=== PATIENT | male | born 1995 | race Caucasian/White ===

== ENCOUNTER 2018-04-24 14:44 | Emergency (ER) | payer BC ==
[~2018-04-24] VITALS: Ht 170.2 cm; Wt 68.0 kg
[~2018-04-24 14:44] MED LIST: ALBU8.5H2; MNTL10T PO
--- NOTE | 2018-04-24 15:36 | ED General ---
General Chief Complaint: General Problems/Pain Stated Complaint: ELEVATED HR,WITHDRAWING FROM XANAX Nursing Triage Note: TO ROOM ACCOMPIED BY DAD FROM [facility] PATIENT HAS HX OF ANXIETY AND HAS BEEN GETTING XANAX OFF THE STREET TO SELF MEDICATE. HAS NOT HAD ANY FOR SEVERAL DAY THINKS HE MAY BE DETOXING SELF OFF. HAS A FUNNY FEELING IN CHEST. Nursing Sepsis Screen: No Definite Risk Source of Information: Patient History of Present Illness Date Seen by Provider: Apr 24, 2018 Time Seen by Provider: 15:19 Initial Comments PT ARRIVES VIA POV FROM [facility] PT STATES HE IS WITHDRAWING FROM XANAX HAS BEEN GETTING XANAX OFF THE STREET, AND TAKING 4-6 MG A DAY FOR THE LAST 8 MONTHS. LAST DOSE WAS SUNDAY AFTER NOON 04/22/18 STATES HE WOKE UP THIS MORNING AND HAD A HEADACHE, BLURRY VISION, NAUSEA, FEELING HOT AND COLD. C/O CHEST PAIN SINCE YESTERDAY AND CONTINUES TODAY PT HAS NOT EATEN TODAY, BUT HAS BEEN DRINKING FLUIDS [facility] [place] AND THOUGHT IT WAS ABNORMAL, SO SENT HERE NO HISTORY OF SIMILAR, PT HAS NEVER STOPPED TAKING IT FOR THIS LONG. PT DOES SMOKE THC DAILY, AND HAS TODAY NO PCP Allergies and Home Medications Allergies Coded Allergies: No Known Drug Allergies (Unverified , 07/13/11) Home Medications Montelukast Sodium 10 Mg Tablet, 1 TAB PO DAILY, (Reported) Patient Home Medication List Home Medication List Reviewed: Yes Review of Systems Constitutional: see HPI EENTM: see HPI Respiratory: no symptoms reported Cardiovascular: see HPI, chest pain Gastrointestinal: see HPI Genitourinary: no symptoms reported Musculoskeletal: no symptoms reported Skin: no symptoms reported Psychiatric/Neurological: See HPI Hematologic/Lymphatic: No Symptoms Reported Immunological/Allergic: no symptoms reported Past Lrsjask-Eksxrv-Vmkszi Hx Patient Social History Alcohol Use: Denies Use Recreational Drug Use: Yes (THC ,AND XANAX OFF STREET, TESTED + FOR COCAINE ) Drug of Choice: THC, XANAX, TESTED + FOR COCAINE 04/24/18 Smoking Status: Never a Smoker Recent Foreign Travel: No Contact w/Someone Who Travel: No Recent Infectious Disease Expo: No Past Medical History Surgeries: Yes (TEETH; BMT'S ) Ear Surgery Respiratory: Yes Asthma Cardiac: No Neurological: No Genitourinary: No Gastrointestinal: No Musculoskeletal: No Endocrine: No HEENT: No Cancer: No Psychosocial: Yes Anxiety (SELF DIAGNOSIS) Physical Exam Vital Signs Vital Signs - First Documented 04/24/18 04/24/18 14:50 17:30 Temp 97.9 Pulse 54 Resp 18 B/P (MAP) 138/89 (105) Pulse Ox 98 O2 Delivery Room Air Capillary Refill : Less Than 3 Seconds General Appearance: No Apparent Distress, WD/WN, Other (FLAT AFFECT) Respiratory: Normal Breath Sounds, No Accessory Muscle Use, No Respiratory Distress Cardiovascular: Regular Rate, Rhythm, No Edema, No JVD, No Murmur, Normal Peripheral Pulses Gastrointestinal: Non Tender, Soft Back: Normal Inspection Extremity: Normal Inspection Neurologic/Psychiatric: Alert, Oriented x3, No Motor/Sensory Deficits, escalator mechanic II- XII Norm as Tested, Other (FLAT AFFECT) Skin: Normal Color, Warm/Dry Progress/Results/Core Measures Suspected Sepsis Recent Fever Within 48 Hours: No Infection Criteria Present: None New/Unexplained Altered Menta: No Sepsis Screen: No Definite Risk SIRS Temperature:97.9 Pulse: 54 Respiratory Rate: 18 Laboratory Tests 04/24/18 15:44: White Blood Count 9.2 Blood Pressure 138 /89 Mean: 105 Laboratory Tests 04/24/18 15:44: Creatinine 1.08, Platelet Count 230, Total Bilirubin 1.3H Results/Orders Lab Results Laboratory Tests Test 04/24/18 15:44 04/24/18 16:20 Range/Units White Blood Count 9.2 4.3-11.0 10^3/uL Red Blood Count 5.05 4.35-5.85 10^6/uL Hemoglobin 16.2 13.3-17.7 G/DL Hematocrit 46 40-54 % Mean Corpuscular Volume 91 80-99 FL Mean Corpuscular Hemoglobin 32 25-34 PG Mean Corpuscular Hemoglobin Concent 35 32-36 G/DL Red Cell Distribution Width 14.0 10.0-14.5 % Platelet Count 230 130-400 10^3/uL Mean Platelet Volume 10.6 H 7.4-10.4 FL Neutrophils (%) (Auto) 77 H 42-75 % Lymphocytes (%) (Auto) 14 12-44 % Monocytes (%) (Auto) 7 0-12 % Eosinophils (%) (Auto) 1 0-10 % Basophils (%) (Auto) 1 0-10 % Neutrophils # (Auto) 7.1 1.8-7.8 X 10^3 Lymphocytes # (Auto) 1.3 1.0-4.0 X 10^3 Monocytes # (Auto) 0.6 0.0-1.0 X 10^3 Eosinophils # (Auto) 0.1 0.0-0.3 10^3/uL Basophils # (Auto) 0.1 0.0-0.1 10^3/uL Sodium Level 139 135-145 MMOL/L Potassium Level 4.5 3.6-5.0 MMOL/L Chloride Level 104 98-107 MMOL/L Carbon Dioxide Level 25 21-32 MMOL/L Anion Gap 10 5-14 MMOL/L Blood Urea Nitrogen 8 7-18 MG/DL Creatinine 1.08 0.60-1.30 MG/DL Estimat Glomerular Filtration Rate > 60 BUN/Creatinine Ratio 7 Glucose Level 102 70-105 MG/DL Calcium Level 9.4 8.5-10.1 MG/DL Total Bilirubin 1.3 H 0.1-1.0 MG/DL Aspartate Amino Transf (AST/SGOT) 22 5-34 U/L Alanine Aminotransferase (ALT/SGPT) 19 0-55 U/L Alkaline Phosphatase 61 40-136 U/L Total Protein 7.8 6.4-8.2 GM/DL Albumin 4.8 H 3.2-4.5 GM/DL Free Thyroxine 1.05 0.70-1.48 NG/DL TSH [place] Testing 0.33 L 0.35-4.94 UIU/ML Salicylates Level < 5.0 L 5.0-20.0 MG/DL Acetaminophen Level < 10 L 10-30 UG/ML Serum Alcohol < 10 <10 MG/DL Urine Color YELLOW Urine Clarity CLEAR Urine pH 8 5-9 Urine Specific [place] 1.010 L 1.016-1.022 Urine Protein NEGATIVE NEGATIVE Urine Glucose (UA) NEGATIVE NEGATIVE Urine Ketones 3+ H NEGATIVE Urine Nitrite NEGATIVE NEGATIVE Urine Bilirubin NEGATIVE NEGATIVE Urine Urobilinogen NORMAL NORMAL MG/DL Urine Leukocyte Esterase NEGATIVE NEGATIVE Urine RBC (Auto) NEGATIVE NEGATIVE Urine RBC RARE /HPF Urine WBC 0-2 /HPF Urine Crystals PRESENT H /LPF Urine Amorphous Sediment FEW RIDGE PHOSPHATE H /LPF Urine Bacteria NEGATIVE /HPF Urine Casts NONE /LPF Urine Mucus MODERATE H /LPF Urine Culture Indicated NO Urine Opiates Screen NEGATIVE NEGATIVE Urine Oxycodone Screen NEGATIVE NEGATIVE Urine Methadone Screen NEGATIVE NEGATIVE Urine Propoxyphene Screen NEGATIVE NEGATIVE Urine Barbiturates Screen NEGATIVE NEGATIVE Ur Tricyclic Antidepressants Screen NEGATIVE NEGATIVE Urine Phencyclidine Screen NEGATIVE NEGATIVE Urine Amphetamines Screen NEGATIVE NEGATIVE Urine Methamphetamines Screen NEGATIVE NEGATIVE Urine Benzodiazepines Screen POSITIVE H NEGATIVE Urine Cocaine Screen POSITIVE H NEGATIVE Urine Cannabinoids Screen POSITIVE H NEGATIVE My Orders Orders - JULIA,KIMI K DO Ua Culture If Indicated (04/24/18 15:24) Thyroid Analyzer (04/24/18 15:24) Drug Screen Stat (Urine) (04/24/18 15:24) Cbc With Automated Diff (04/24/18 15:24) Comprehensive Metabolic Panel (04/24/18 15:24) Alcohol (04/24/18 15:24) Acetaminophen (04/24/18 15:24) Salicylate (04/24/18 15:24) Ekg Tracing (04/24/18 15:24) Monitor-Rhythm Ecg Trace Only (04/24/18 15:24) Free T4 (Free Thyroxine) (04/24/18 15:44) Vital Signs/I&O 04/24/18 04/24/18 14:50 17:30 Temp 97.9 Pulse 54 65 Resp 18 18 B/P (MAP) 138/89 (105) 136/66 Pulse Ox 98 96 O2 Delivery Room Air Capillary Refill : Less Than 3 Seconds Blood Pressure Mean: 105 ECG Initial ECG Impression Date: Apr 24, 2018 Initial ECG Impression Time: 15:53 Initial ECG Rate: 61 Initial ECG Rhythm: Normal Sinus (EARLY REPOLARIZATION) Departure Communication (Admissions) Family Conversation DISCUSSED OPTIONS WITH PT AND FATHER. PT OPTS TO TRY OUTPATIENT TREATMENT AT [facility] Communication (PCP) 1715--SPOKE WITH DR. SANCHEZ, ADVISES TO CALL CLINIC TO ARRANGE FOR AN INTAKE TOMORROW INTO THEIR OUTPATIENT ADDICTION TREATMENT PROGRAM 1720--SPOKE WITH [facility], APPOINTMENT MADE FOR PT TO SEE SHAQ HARRIS, AT 1300 TOMORROW. Impression Primary Impression: Illicit drug use Disposition: 01 HOME, SELF-CARE Condition: Stable Departure-Patient Inst. Referrals: NO,LOCAL PHYSICIAN (PCP) Primary Care Physician [facility] Patient Instructions: Drug Abuse Treatment, Drug Abuse and Drug Addiction (DC) Add. Discharge Instructions: LOTS OF CLEAR LIQUIDS--WATER, BROTH, JELLO, GATORADE FOLLOW UP WITH [facility] TOMORROW AT 1:00 WITH SHAQ HARRIS All discharge instructions reviewed with patient and/or family. Voiced understanding. KIMI DUMONT DO Apr 24, 2018 15:36
[2018-04-24 15:57] LABS: BASOPHILS # (AUTO) 0.1 10^3/uL (0.0-0.1); BASOPHILS % (AUTO) 1 % (0-10); EOSINOPHILS # (AUTO) 0.1 10^3/uL (0.0-0.3); EOSINOPHILS % (AUTO) 1 % (0-10); HEMATOCRIT 46 % (40-54); HEMOGLOBIN 16.2 G/DL (13.3-17.7); LYMPHOCYTES # (AUTO) 1.3 X 10^3 (1.0-4.0); LYMPHOCYTES % (AUTO) 14 % (12-44); MEAN CORPUSCULAR HEMOGLOBIN 32 PG (25-34); MEAN CORPUSCULAR HGB CONC 35 G/DL (32-36); MEAN CORPUSCULAR VOLUME 91 FL (80-99); MEAN PLATELET VOLUME 10.6 FL (7.4-10.4); MONOCYTES # (AUTO) 0.6 X 10^3 (0.0-1.0); MONOCYTES % (AUTO) 7 % (0-12); NEUTROPHILS # (AUTO) 7.1 X 10^3 (1.8-7.8); NEUTROPHILS % (AUTO) 77 % (42-75); PLATELET COUNT 230 10^3/uL (130-400); RED BLOOD COUNT 5.05 10^6/uL (4.35-5.85); WHITE BLOOD COUNT 9.2 10^3/uL (4.3-11.0)
[2018-04-24 16:20] LABS: ALANINE AMINOTRANSFERASE 19 U/L (0-55); ALBUMIN 4.8 GM/DL (3.2-4.5); ALKALINE PHOSPHATASE 61 U/L (40-136); BILIRUBIN,TOTAL 1.3 MG/DL (0.1-1.0); BUN/CREATININE RATIO 7; CALCIUM 9.4 MG/DL (8.5-10.1); CARBON DIOXIDE 25 MMOL/L (21-32); CHLORIDE 104 MMOL/L (98-107); CREATININE SERUM 1.08 MG/DL (0.60-1.30); GFR ESTIMATED > 60; GLUCOSE 102 MG/DL (70-105); POTASSIUM 4.5 MMOL/L (3.6-5.0); SALICYLATE < 5.0 MG/DL (5.0-20.0); SODIUM 139 MMOL/L (135-145); TOTAL PROTEIN 7.8 GM/DL (6.4-8.2)
[2018-04-24 16:26] LABS: ACETAMINOPHEN < 10 UG/ML (10-30)
[2018-04-24 16:31] LABS: BILIRUBIN,URINE NEGATIVE (NEGATIVE); CLARITY,URINE CLEAR; COLOR,URINE YELLOW; GLUCOSE, URINE (UA) NEGATIVE (NEGATIVE); KETONES,URINE 3+ (NEGATIVE); LEUKOCYTE ESTERASE ,URINE NEGATIVE (NEGATIVE); NITRITE,URINE NEGATIVE (NEGATIVE); PH,URINE 8 (5-9); PROTEIN,URINE NEGATIVE (NEGATIVE); UROBILINOGEN,URINE NORMAL (NORMAL)
[2018-04-24 16:39] LABS: AMORPHOUS SEDIMENT,UR FEW AMOR PHOSPHATE /LPF; BACTERIA,URINE NEGATIVE /HPF; RBC,URINE RARE /HPF; WBC,URINE 0-2 /HPF
[2018-04-24 16:40] LABS: TSH (THYROID ANALYZER) 0.33 UIU/ML (0.35-4.94)
[2018-04-24 17:00] LABS: BENZODIAZEPINES SCREEN URINE POSITIVE (NEGATIVE); CANNABINOID SCREEN, URINE POSITIVE (NEGATIVE); COCAINE SCREEN URINE POSITIVE (NEGATIVE)
[2018-04-24 17:01] LABS: AMPHETAMINE SCREEN, URINE NEGATIVE (NEGATIVE); BARBITURATE SCREEN URINE NEGATIVE (NEGATIVE); METHADONE STAT NEGATIVE (NEGATIVE); METHAMPHETAMINE SCREEN URINE S NEGATIVE (NEGATIVE); OPIATE SCREEN URINE NEGATIVE (NEGATIVE); OXYCODONE STAT NEGATIVE (NEGATIVE); PROPOXYPHENE STAT NEGATIVE (NEGATIVE); TRICYCLIC ANTIDEPRESSANTS SCRE NEGATIVE (NEGATIVE)
[2018-04-24 17:27] LABS: FREE T4 (FREE THYROXINE) 1.05 NG/DL (0.70-1.48)
[2018-04-24 17:30] VITALS: BP 136/66
== END 2018-04-24 17:34 | disposition home or self-care (01) ==
LOC: EDUNIT# 14:44 → ER 14:47
DX: F12.90 Cannabis use, unspecified, uncomplicated (principal); F14.90 Cocaine use, unspecified, uncomplicated; F13.90 Sedative, hypnotic, or anxiolytic use, unspecified, uncomplicated; F41.9 Anxiety disorder, unspecified
CPT/HCPCS: 36415; 80053; 80306; 80320; 80329; 81000; 84439; 84443; 85025; 93005; 93041